=== PATIENT | female | born 1955 | race Caucasian/White ===

== ENCOUNTER 2017-02-15 13:57 | Observation (INO) | payer OTHER ==
[~2017-02-15] VITALS: Ht 165.1 cm; Wt 82.2 kg
[2017-02-15 15:18] LABS: ARTERIAL BLD GAS O2 SATURATION 95.8 % (94-98); ARTERIAL BLOOD GAS BASE EXCESS -0.9 mmol/L (-2.0-3.0); ARTERIAL BLOOD GAS HCO3 22.9 mmol/L (22-26); ARTERIAL BLOOD GAS PCO2 37.2 mmHg (32-45); ARTERIAL BLOOD GAS pH 7.41 (7.35-7.45)
[2017-02-15 15:18] LABS: BASO # 0.1 10_X3_uL (0.0-0.1); BASO % 0.8 % (0.1-1.2); EOS # 1.7 10_X3_uL (0.0-0.4); EOS % 25.7 % (0.7-5.8); GRAN # 3.2 10_X3_uL (1.6-6.1); GRAN % 48.8 % (34.0-71.1); HEMATOCRIT 41.3 % (34-45); HEMOGLOBIN 13.5 g/dL (11.2-15.7); LYMPH # 1.1 10_X3_uL (1.2-3.7); LYMPH % 17.3 % (19.3-51.7); MEAN CORPUSCULAR HEMOGLOBIN 29.4 pg (27.0-33.0); MEAN CORPUSCULAR HGB CONC 32.7 g/dL (32.0-36.0); MEAN PLATELET VOLUME 10.1 fl (7.5-11.5); MONO # 0.5 10_X3_uL (0.2-0.9); MONO % 7.4 % (4.7-12.5); PLATELET COUNT 266 x10_3/uL (182-369); RED BLOOD COUNT 4.59 x10_6/uL (3.9-5.2); RED CELL DISTRIBUTION WIDTH 13.8 % (11.7-14.4); WHITE BLOOD COUNT 6.5 x10_3/uL (4.0-10.0)
[2017-02-15 16:30] LABS: ALKALINE PHOSPHATASE 124 U/L (50-136); ALT/SGPT 19 U/L (3.5-33.9); AST/SGOT 22 U/L (7.04-26.96); BILIRUBIN,TOTAL 0.32 mg/dL (0.0-1.0); BLOOD UREA NITROGEN 13 mg/dL (7-18); CALCIUM 9.2 mg/dL (8.7-10.7); CARBON DIOXIDE 26 mmol/L (21-32); CREATININE 0.7 mg/dL (0.6-1.3); GLUCOSE,RANDOM 83 mg/dL (70-99); TOTAL PROTEIN 7.3 gm/dL (6.4-8.2)
[2017-02-15 17:35] LABS: SODIUM 140 mmol/L (136-145)
[2017-02-16 13:05] LABS: HEMATOCRIT 36.4 % (34-45); MEAN CORPUSCULAR HEMOGLOBIN 29.9 pg (27.0-33.0); MEAN CORPUSCULAR VOLUME 90.8 fL (79-95); MEAN PLATELET VOLUME 10.3 fl (7.5-11.5); RED BLOOD COUNT 4.01 x10_6/uL (3.9-5.2); RED CELL DISTRIBUTION WIDTH 13.7 % (11.7-14.4); WHITE BLOOD COUNT 8.9 x10_3/uL (4.0-10.0)
[2017-02-16 15:09] LABS: BLOOD UREA NITROGEN 11 mg/dL (7-18); CALCIUM 8.3 mg/dL (8.7-10.7); CARBON DIOXIDE 21 mmol/L (21-32); CREATININE 0.6 mg/dL (0.6-1.3); GLUCOSE,RANDOM 209 mg/dL (70-99); POTASSIUM 3.3 mmol/L (3.5-5.1); SODIUM 142 mmol/L (136-145)
[2017-02-17 06:48] LABS: HEMATOCRIT 36.7 % (34-45); HEMOGLOBIN 11.7 g/dL (11.2-15.7); MEAN CORPUSCULAR HEMOGLOBIN 29.6 pg (27.0-33.0); MEAN CORPUSCULAR HGB CONC 31.9 g/dL (32.0-36.0); MEAN CORPUSCULAR VOLUME 92.9 fL (79-95); MEAN PLATELET VOLUME 10.8 fl (7.5-11.5); RED BLOOD COUNT 3.95 x10_6/uL (3.9-5.2); RED CELL DISTRIBUTION WIDTH 14.1 % (11.7-14.4); WHITE BLOOD COUNT 12.4 x10_3/uL (4.0-10.0)
[2017-02-17 07:13] LABS: BLOOD UREA NITROGEN 16 mg/dL (7-18); CALCIUM 8.3 mg/dL (8.7-10.7); CARBON DIOXIDE 20 mmol/L (21-32); CREATININE 0.6 mg/dL (0.6-1.3); GLUCOSE,RANDOM 146 mg/dL (70-99); POTASSIUM 4.4 mmol/L (3.5-5.1); SODIUM 141 mmol/L (136-145)
== END 2017-02-17 12:10 | disposition other institution (70) ==
LOC: MS 13:57
PROVIDERS: ADMIT Family Medicine
DX: J45.901 Unspecified asthma with (acute) exacerbation (principal); R00.2 Palpitations; R00.0 Tachycardia, unspecified; R60.0 Localized edema; Z79.899 Other long term (current) drug therapy; Z90.710 Acquired absence of both cervix and uterus; Z83.3 Family history of diabetes mellitus; Z82.49 Family history of ischemic heart disease and other diseases of the circulatory system; Z82.61 Family history of arthritis; Z82.62 Family history of osteoporosis
CPT/HCPCS: 36415; 71020; 80048; 80053; 82803; 83036; 83735; 84443; 85025; 86738; 87040; 87449; 93005; 93041; 93306; 94640; 94664; 96361; 96365; 96366; 96367; 96372; 96375; 96376; 99070; G0378; G0379; J2930; J7050